=== PATIENT | female | born 1970 | race Caucasian/White ===

== ENCOUNTER 2019-07-11 09:44 | Outpatient (CLI) | payer BC, SELFPAY ==
--- NOTE | 2019-07-11 09:07 | W.PREOPHP ---
Assessment and Plan (1) Peroneal tendon tear: Current visit: No Status: Acute Qualifiers: Encounter type: initial encounter Laterality: right Qualified Code(s): S86.311A - Strain of muscle(s) and tendon(s) of peroneal muscle group at lower leg level, right leg, initial encounter (2) Os peroneum syndrome of right foot: Current visit: No Status: Acute Plan: Educated patient on surgery covering surgical technique, recovery process, benefits and risks including but not limited to risk of infection, blood clot, damage to soft tissue/blood vessels/nerves in detail. After discussion patient gives verbal understanding of risks and elects to proceed with scheduling surgery. Patient had opportunity to have questions answered to their satisfaction. They will contact office if issues arise. Patient will continue to be scheduled for right peroneal tendon debridement with possible repair as well as excision of painful os perineum with Dr. Sims. History of Present Illness Narrative: Ms. Urias is a 48-year-old female who presents to clinic for preoperative visit for scheduled debridement of right peroneal tendons with possible repair. Patient has been experiencing right foot and ankle pain for years. Pain is identified over the lateral aspect of the foot and extends up proximal to the lateral ankle. Pain is intermittent and severely aggravated with activity. States that pain varies day to day; if driving she has severe aggravation the following day as well. In addition pain is elicited with increased physical activities such as running, exercise because it has caused her to have difficulty tolerating any uneven surface. Patient is a trained physical therapist and has treated herself with extreme activity modifications, NSAIDs, manual soft tissue manipulation and eccentric exercises without significant symptomatic relief. Patient denies instability but does report ankle feels weak due to the pain. Patient has previously seen Dr. Sims and reviewed MRI of which as per his note on 05/29/19 states she has tearing of the peroneal longus and brevis tendons; as well as painful os peroneum syndrome with notable changes on the MRI. Reports that her left foot has also been more irritated recently, however her right continues to be the most severe. Due to patient's continued pain despite symptomatic treatment Dr. Sims offered surgery and patient was eager to proceed. Pertinent Surgical Information Reports severe vertigo based on her positioning. She has concerns regarding her positioning during and following surgery. If possible she would prefer to have limited number of transfers and to have the head of the bed slightly raised prior to being awoken from anesthesia. Reports her twin just had surgery and experienced an adverse skin reaction to the adhesive tape. Her sister also had a severe reaction with post-operative vomiting and nausea following general anesthesia. Because of the symptoms following her twin's surgery patient has concerns regarding her on anesthesia plan. Patient was offered opportunity to meet with nurse adolescent medicine specialist to fully discuss anesthesia options. Denies past medical history of: Hypertension, stroke, cardiac issues, angina, asthma, COPD, sleep apnea, renal issues, liver issues, hepatitis, gastrointestinal issues, ulcers, hyperlipidemia, bleeding disorders, seizures, migraines, anxiety, depression, diabetes, autoimmune disorders, thyroid issues Denies prior complications from surgery or anesthesia. Review of Systems Constitutional Denies fever(s), Denies frequent falls and Denies headache(s) Eyes Denies change in vision ENT Reports vertigo, Reports dizziness (denies any recent change), Denies ear discharge, Denies headache(s), Denies epistaxis, Denies nasal discharge and Denies sore throat Cardiovascular Denies chest pain, Denies rapid heart rate, Denies irregular heart rhythm, Denies palpitations, Denies dyspnea, Denies dyspnea on exertion and Denies slow heart rate Respiratory Denies cough, Denies dyspnea, Denies dyspnea on exertion and Denies wheezing Gastrointestinal Denies abdominal pain, Denies melena, Denies hematochezia, Denies constipation, Denies diarrhea, Denies nausea and Denies vomiting Genitourinary Denies hematuria, Denies dysuria and Denies urinary urgency Musculoskeletal Reports as per HPI, Denies numbness and Denies tingling Neurologic Reports vertigo, Reports dizziness (denies any recent change), Denies frequent falls, Denies headache(s), Denies numbness and Denies tingling Psychiatric Denies anxiety and Denies depression Endocrine Denies palpitations Allergic/Immunologic Denies wheezing [facility] Medical History Hot flashes due to menopause (Acute) Os peroneum syndrome of right foot (Acute) Peroneal tendon tear (Acute) 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 Father Alzheimer's disease with early onset Social History Smoking/Tobacco Use Status: Never Alcohol Intake: current Alcohol Intake frequency: holidays/special occasions only Drug use: Never Substance use type: does not use Do you feel safe at home: Yes Do you feel safe in your relationship?: Yes Meds Home Medications Medication Instructions Recorded Confirmed Type loratadine 10 mg PO DAILY PRN 07/11/19 07/11/19 History venlafaxine 75 mg tablet 75 mg PO DAILY 07/11/19 07/11/19 History Allergies Allergy/AdvReac Type Severity Reaction Status Date / Time amoxicillin AdvReac Intermediate Skin Rash Unverified 07/11/19 09:21 environmental Allergy Uncoded 07/11/19 09:21 Exam Const General: cooperative and no acute distress HENMT Head: normal to inspection, normocephalic and atraumatic Ears: external ears normal General nose exam: external nose normal and no nasal discharge Face and sinus: face symmetric Mouth: oral mucosae normal, lip normal, tongue normal and moist mucous membranes Teeth and gingiva: dentition normal Throat: posterior oropharynx normal Eyes Pupils: PERRL EOM: EOM intact bilaterally Neck Neck: trachea midline Carotids: normal carotid upstroke Lymphatic: no lymphadenopathy noted Resp Effort & Inspection: normal respiratory effort and able to speak in complete sentences Auscultation: clear to auscultation bilaterally, no rales, no rhonchi and no wheezes Cardio Heart Sounds: S1 normal, S2 normal and no murmurs Pulses: radial pulses present bilaterally GI Palpation: soft, no hepatosplenomegaly and nontender Auscultation: normal bowel sounds Skin General skin exam: no rashes or lesions noted
== END 2019-07-11 10:04 ==
PROVIDERS: PCP Internal Medicine; Visit Provider Student in an Organized Health Care Education/Training Program
DX: S86.311A Strain of muscle(s) and tendon(s) of peroneal muscle group at lower leg level, right leg, initial encounter (principal); M77.51 Other enthesopathy of right foot and ankle; Z01.818 Encounter for other preprocedural examination
CPT/HCPCS: NC

== ENCOUNTER 2019-07-16 12:51 | Day surgery (SDC) | payer BC, SELFPAY ==
[2019-07-11 09:50] VITALS: BP 111/74; PULSE 68; RESP 16; TEMP 36.7; O2SAT 98
[2019-07-16 13:12] VITALS: BP 108/68; PULSE 65; RESP 16; TEMP 36.4; O2SAT 97
[2019-07-16] MEDS: Lactated Ringers 1,000 ML 80 ML IV (13:42)
[2019-07-16] MEDS: ceFAZolin 2 GM/50 ML BAG IVPB (14:02)
--- NOTE | 2019-07-16 15:05 | PDOC.DSDIS_ITS ---
Discharge Plan Disposition Patient Disposition: HOME Condition: Good Discharge Details Reason For Visit: Right Painful Os Peroneum Attending Provider: Vadim Sims Primary Care Provider: Josephine Velarde Home Meds and New Rx's Prescriptions: New hydrocodone-acetaminophen 5-325 mg tablet 1 tab PO Q4H PRN (Reason: pain) Qty: 14 RF: 0 acetaminophen 500 mg tablet 500 mg PO Q6H PRN PRN (Reason: pain) Qty: 90 RF: 3 ibuprofen 600 mg tablet 600 mg PO TID PRNQty: 90 RF: 3 Continued venlafaxine 75 mg tablet 75 mg PO DAILY RF: 0 loratadine 10 mg Tablet 10 mg PO DAILY PRNRF: 0 Discharge Instructions Additional Instructions: Activity: You are NON WEIGHT BEARING in the splint. You should keep the leg elevated as much as possible. You may wiggle your toes and move your hip and knee. Dressings: You should keep your splint clean and dry. Do NOT get wet or dirty. If you have issues with your splint, please call the office at [phone] or the hospital after hours. Medications: - You should take Tylenol and Ibuprofen around the clock for baseline pain. - You have been prescribed a stronger narcotic, Hydrocodone, for breakthrough pain. Follow-up: 2 weeks Referrals: Vadim Sims MD [ [facility] STAFF PHYSICIAN] - Equipment/Supplies: Splint Activity:: Elevate Remove Dressings/Wound Care:: Do Not Remove Shower/Bathe:: Cover Diet:: As Tolerated Discharge Orders Discharge Orders: Discharge Order (Routine); Ordered 07/16/19 Ordered By: Vadim Sims DS: Diagnosis Discharge Diagnosis (1) Os peroneum syndrome of right foot: Status: Acute
[2019-07-16 15:55] VITALS: BP 121/68; PULSE 60; RESP 18; TEMP 36.6; O2SAT 96
--- NOTE | 2019-07-17 12:21 | ROE_ITS ---
REPORT OF OPERATIVE PROCEDURE DATE OF SURGERY July 16, 2019 PREOPERATIVE DIAGNOSES Right painful os peroneum syndrome, peroneal tendon tear. POSTOPERATIVE DIAGNOSES Right painful os peroneum syndrome, peroneal tendon tear. SURGERY Peroneal tendon debridement with tubularization and repair of the peroneal longus tendon, excision of the os peroneum. SURGEON Vadim Sims M.D. ROMESIELIU Monae PA-C. ESTIMATED BLOOD LOSS 10 cc. COMPLICATIONS None. DISPOSITION The patient was awakened from anesthesia and taken to the PACU in stable condition. INDICATION FOR PROCEDURE Maria Guadalupe is a 48-year old active female who has had persistent lateral right foot pain. She has been eval uated in the past, and has tried a host of conservative treatment options. However, she continued to have symptoms of pain over the lateral aspect of the foot with most weightbearing and physical activi ties. MRI revealed a tear of the peroneal longus tendon, possibly the peroneal brevis tendon, and sig nificant signal within the os peroneum. After failure of conservative treatment options, I did offer her surgical intervention. I reviewed the risks of the procedure, these included but were not limited to bleeding, infection, pain, stiffness, weakness, need for repeat procedures, tendon rupture, damag e to nerves and vessels. Despite these risks, she elected to procedure. PROCEDURE DESCRIPTION Maria Guadalupe was greeted in the preoperative holding area, her identity was confirmed and the correct side wa s identified and marked. The consent was reviewed with the patient and signed. The history and physic al was updated. She was then taken back to the Operating Room and placed in the supine position. All bony prominences were padded. A general anesthetic was administered. A large bump was placed underne ath the right hip to place her leg in maximum internal rotation. The right leg was then prepped with ChloraPrep and draped in a standard fashion. Prophylactic antibiotics in the form of cefazolin were g iven. A timeout was performed for safe surgery. Using 0.25% bupivacaine with epinephrine, I performed local blockade of the intended surgical site, a s well as infiltration of the soft tissue surrounding the sural and superficial peroneal nerves. Once this was performed, an Esmarch tourniquet was then applied. A linear incision was made from the tip of the distal fibula down towards the base of the fifth metatarsal. This was taken sharply through th e skin. Blunt dissection was used to dissect down deep to the peroneal tendon sheath. One small branc h of the sural nerve was identified distally and this was retracted out of the way. Once the peroneal tendon sheath was identified, the soft tissue on top was then retracted to either side to expose the peroneal tendons. The sheath was opened. The intratendinous septum at the level of the peroneal tube rcle was removed with a rongeur. This allowed mobilization of both the peroneal brevis and peroneal l ongus tendons. The sheath was incised distally down to the base of the fifth metatarsal and along the peroneal longus past the os peroneum. At this point, we had the tendons free from the level of the t ip of the fibula down towards the fifth metatarsal. There was some synovitis seen around the peroneal longus and the peroneal brevis. This was resected. The peroneal longus had obvious tearing with some degeneration and fibrillation of the tendon. There was no major tear, but more of a longitudinal spl it, which flattened the tendon. The os peroneum was then identified on the plantar lateral side of th e cuboid. Using a freer and a [place] blade, I excised the os peroneum. I then removed it from the ten don with a rongeur. Once this was removed in whole, it was inspected on multiple positions to ensure that the majority of this was removed. There was also some bony debris in the peroneal brevis tendon and it is unclear if this was part of the os or simply just degenerative changes to the peroneal brev is. This was removed with a rongeur. There was just a small amount of tendon tearing in this area, wh ich was dissected out sharply. The peroneal brevis did not have any clear tearing like the peroneal l ongus did. The degenerative tissue was excised from the peroneal longus. Using a #2-0 FiberWire, I th en tubularized the longitudinal tear of the peroneal longus using a running suture. This was tied and re-constituted the tubular nature of the peroneal longus tendon. The sheath riding underneath the pl remedios aspect of the foot was also debrided with the freer and with danelle irrigation. There was no tea ring seen to extend distal to the os peroneum. Any remnant synovitis was dissected and debrided. The wound was thoroughly irrigated. The deep tissue was closed with a #3-0 Vicryl and the skin was closed with #4-0 Nylon. The Esmarch tourniquet was released and the wound was covered with Xeroform, 4x4s, ABD and Webril. A short leg splint was applied. At the end of the case, all counts were corrected. Chel lee was transferred back to the PACU in stable condition. There were no noted complications. She will be nonweightbearing with a splint and crutches. When she returns to the office, we will phillips sition her into a fracture walker boot.
== END 2019-07-16 16:42 | disposition home or self-care (01) ==
PROVIDERS: PCP Internal Medicine; Visit Provider Student in an Organized Health Care Education/Training Program
PROC: (CPT 28088; principal; 2019-07-16 15:00)
DX: S86.311A Strain of muscle(s) and tendon(s) of peroneal muscle group at lower leg level, right leg, initial encounter (principal); X58.XXXA Exposure to other specified factors, initial encounter; M77.51 Other enthesopathy of right foot and ankle; M65.9 Synovitis and tenosynovitis, unspecified
CPT/HCPCS: 28088; 28226; 28122; E0114; J0131; J0690; J1200; J1885; J2250; J2405

== ENCOUNTER → 2022-07-19 01:16 | Outpatient (CLI) | payer BC, SELFPAY ==
--- NOTE | 2022-07-19 | DI.MAMMO_ITS ---
Exam(s) MAMMO SCREENING EXAM: MAMMO SCREENING CLINICAL HISTORY: SCREENING, Z12.39 TECHNIQUE: Mammograms were interpreted according to the usual protocol including computer analysis w [employer] CAD system, tomosynthesis and C-view imaging. COMPARISON: 2019 [facility] [place] FINDINGS: The breasts are composed of heterogeneously dense fibroglandular densities, Breast Density category C . No suspicious masses or suspicious microcalcifications are seen. No skin thickening or abnormal axillary lymph nodes are seen. There has been no significant change from prior exam. IMPRESSION: BI-RADS Category 1, Negative mammogram. Yearly screening mammography is recommended. Breast Density Category C, heterogeneously Dense. The mammogram demonstrates the patient's breast tissue is dense. Dense breast tissue is very common a nd is not abnormal but dense breast tissue can make it harder to find cancer on a mammogram. Also, de nse breast tissue may increase breast cancer risk. This information about the result of the mammogram report was provided to the patient to raise their awareness. Use this report when you speak with the patient about their risks for breast cancer, which includes their family history. At that time, you may recommend additional screening tests (Ultrasound or MRI) as they might be useful based on their r isk. A negative radiographic report should not delay biopsy if a dominant or clinically suspicious mass is present. Up to ten percent of cancers are not identified on mammography. A negative report may reinforce clinical impression. Adenosis and dense breasts may obscure an underlying neoplasm. False positive reports average 6 to 10%.
== END ==
PROVIDERS: PCP Internal Medicine; Visit Provider Nurse Practitioner Family
DX: Z12.31 Encounter for screening mammogram for malignant neoplasm of breast (principal); R92.8 Other abnormal and inconclusive findings on diagnostic imaging of breast
CPT/HCPCS: 77063; 77067

== ENCOUNTER 2022-09-23 15:41 | Outpatient (REF) | payer BC, SELFPAY | END 2022-09-23 15:42 | disposition home or self-care (01) | LOC: NCHCN 15:41 | PROVIDERS: PCP Internal Medicine; Visit Provider Nurse Practitioner Family | DX: R39.15 Urgency of urination (principal) | CPT/HCPCS: 87086 ==

== ENCOUNTER 2022-11-29 14:51 | Outpatient (CLI) | payer BC, SELFPAY ==
--- NOTE | 2022-11-29 14:30 | DI.RAD_ITS ---
Exam(s) XR KNEE RT 3V AP,LAT,LUCINDA EXAM: XR KNEE RT 3V AP,LAT,LUCINDA CLINICAL HISTORY: RIGHT KNEE PAIN. TECHNIQUE: 2D digital imaging was performed. COMPARISON: No exams were available for comparison FINDINGS: 3 views No evidence of fracture or prominent joint effusion Bone density normal. No degenerative changes. No osseous lesions. IMPRESSION: No significant osseous findings. DATA REPOSITORY: RADIATION DOSE DELIVERED:
== END 2022-11-29 14:52 | disposition home or self-care (01) ==
LOC: DIORS 14:52
PROVIDERS: PCP Nurse Practitioner Family; Referring Provider Nurse Practitioner Family; Visit Provider Student in an Organized Health Care Education/Training Program
DX: M25.561 Pain in right knee (principal)
CPT/HCPCS: 73562

== ENCOUNTER 2022-12-22 00:36 | Outpatient (CLI) | payer BC, SELFPAY ==
--- NOTE | 2022-12-22 06:52 | DI.MRI_ITS ---
Exam(s) MR LOWER JOINT RT WO EXAM: MR LOWER JOINT RT WO CLINICAL HISTORY: R KNEE PAIN,acute medial meniscal tear rt knee, s83.241a TECHNIQUE: Multiplanar multisequence MRI of the knee was performed. COMPARISON: CR XR KNEE RT 3V AP,LAT,LUCINDA from 11/29/2022 FINDINGS: EFFUSION: There is a small knee joint effusion. No Frazier cyst. There is some fluid in the anterior subcutaneous tissue located anteromedial to the lower aspect of patellar tendon. Is no prepatellar s oft tissue swelling MARROW:There is no evidence of fracture, bone contusion, nor osteochondral defects.. There are no si gnificant osseous lesions. PATELLOFEMORAL COMPARTMENT: The quadriceps tendon is intact. The patellar ligament is intact. Are few small surface defects in the retropatellar cartilage but no deep fissures nor osteochondral d efects and there is no abnormal intraosseous signal in the patella.There is no intraosseous signal to suggest recent patellar dislocation. There are no patellar retinacular tears. CRUCIATE LIGAMENTS: The anterior cruciate ligament is intact.The posterior cruciate ligament is intac t. MEDIAL COMPARTMENT/MEDIAL MENISCUS: There is a small oblique tear in the posterior horn of the medial meniscus. Signal contacts the inferior articular surface. Meniscal root is intact. No bucket-hand le configuration. No flipped fragments. The anterior horn is intact.. There is multilevel moderate thinning of the cartilage over the medial femoral condyle small foci of subarticular signal abnormality in the medial condyle at these levels. The most prominent of these i s in the anterior weight-bearing surface and measures 5 millimeters wide by 3 millimeters AP. Subart icular signal at this level. Possible small developing osteochondral defect at this level. There ar e no osteophytes in the medial compartment. MEDIAL COLLATERAL LIGAMENT: There is fluid interposed between the deep and superficial components of the MCL. Sprain signal. No full-thickness tear. There is mild meniscocapsular separation. LATERAL COMPARTMENT/LATERAL MENISCUS: There is no evidence of lateral meniscal tear.There are no manuel dral defects, osteochondral defects, subarticular marrow edema, nor osteophytes evident. ILIOTIBIAL BAND: Intact LATERAL COLLATERAL LIGAMENT COMPLEX: The fibular collateral ligament is intact. The biceps femoris t endon is intact.Popliteus muscle and tendon are intact. IMPRESSION: 1. There is a small tear in the posterior horn of the medial meniscus. There is mild meniscocapsular separation and there is some fluid interposed between the deep and superficial components of the med ial collateral ligament but there is no full-thickness tear of the MCL. There are multifocal small c hondral defects over the medial femoral condyle, the most prominent being 4-5 millimeters size over t he anterior weight-bearing surface, this associated with some mild subarticular edema at this level a nd at risk for developing into osteochondral defect. 2. There are no tears of the lateral meniscus. 3. There are no cruciate or collateral ligament tears. 4. Small joint effusion. No Frazier cyst. No evidence of loose intra-articular bodies. 5. Subcutaneous edema noted anterior to the lower half of the patellar ligament. Mild increased sig nal but no tear of the patellar ligament evident. DATA REPOSITORY:
== END 2022-12-22 00:56 ==
LOC: DI 00:36
PROVIDERS: PCP Nurse Practitioner Family; Visit Provider Student in an Organized Health Care Education/Training Program
DX: S83.241A Other tear of medial meniscus, current injury, right knee, initial encounter (principal); M25.461 Effusion, right knee; X58.XXXA Exposure to other specified factors, initial encounter
CPT/HCPCS: 73721

== ENCOUNTER 2023-01-20 07:22 | Day surgery (SDC) | payer BC, SELFPAY ==
--- NOTE | 2023-01-20 07:27 | ROE_ITS ---
Date of service: 01/20/23 Time of Service: 10:00 Operative Note Operative Note DATE OF PROCEDURE: 01/20/23 PRE-OP DIAGNOSIS: Right knee 1. Medial meniscus tear 2. Synovitis 3. Chondromalacia POST-OP DIAGNOSIS: same PROCEDURE: Right knee 1. Partial medial meniscectomy, CPT #08831 2. Greater than 2 compartment synovectomy, CPT #14475: Patellofemoral, intercondylar, anterior medial, and anterior lateral SURGEON: Howie Aguilar INVENTORY REPRESENTATIVE: None None ANESTHESIA TYPE: Local By Surgeon and Spinal Refer to Anesthesia Record ESTIMATED BLOOD LOSS: 3 PATHOLOGY: none sent TOURNIQUET TIME: 0 Patient was transported to: PACU Patient's condition: stable Indications: Please see complete medical record for details. Findings: Exam under anesthesia: Full range of motion, stable varus, valgus, Daryn, and anterior drawer Arthroscopic findings: Moderate suprapatellar and patellofemoral synovitis. Mild undersurface patellar central chondromalacia. Medial meniscus posterior horn body junction small to moderate inferior leaflet tear that had thickness into the red zone and nearly capsule at its greatest extent. Remainder root and anterior body okay. Small, superficial medial femoral condyle moderate grade chondromalacia with minimal cartilage edge flaps. Intact ACL with mid substance to distal insertion hemorrhagic inflamed synovitis overlying. Moderate anterior medial, anterolateral, and intercondylar synovitis. Intact lateral compartment cartilage and meniscus. Procedure Description: In the operating room, general anesthesia was induced. The patient was positioned supine on the operating room table. All bony prominences were well- padded. Preoperative antibiotics were administered. The knee was prepped and draped in the usual sterile fashion. The correct patient, procedure, and side of the procedure were all verified prior to incision. Exam under anesthesia was performed. 10 cc of 0.25% bupivacaine containing epinephrine was infiltrated about the planned anteromedial and anterolateral knee arthroscopy portals. The portals were established and a complete diagnostic arthroscopy was performed with relevant findings detailed above. The mechanical shaver was used to remove abundant inflamed synovium from the anteromedial, anterolateral, and patellofemoral compartments. It was also carefully resected from the ACL without damaging the underlying ACL. The medial meniscus tear was inspected with the probe. Using a combination of hand instruments including meniscal biters and a power shaver and working through the anteromedial and anterolateral portals the meniscus was debrided of all torn tissue to a stable margin. Care was taken to preserve as much meniscus tissue was possible. The meniscal remnant was probed and found to have a stable margin, stable root, and no other tears A minimal chondroplasty was done using the mechanical shaver a very small edge flaps about the medial femoral condyle cartilage lesion. Under direct arthroscopic visualization an 18-gauge needle was passed into the knee from superolateral into the suprapatellar pouch. The knee was copiously irrigated with arthroscopic fluid until there was a clear effluent before being drained of all fluid. The anteromedial and anterolateral portals were closed in 3-0 Monocryl in a buried interrupted fashion. 20 cc of 0.25% bupivacaine with epinephrine containing 4 mg of morphine was infiltrated into the knee through the previously placed needle. Mastisol, Steri-Strips, and 4 x 4 gauze were applied over the incisions followed by sterile soft roll. The knee was then wrapped gently with an LAMINE comressive bandage. The patient awoke from anesthesia without complication and was transferred to the recovery room in a stable condition.
--- NOTE | 2023-01-20 07:28 | PDOC.DSDIS_ITS ---
Date of service: 01/20/23 Time of Service: 13:00 Discharge Plan Disposition Patient Disposition: Home Discharge Details Attending Provider: Howie Aguilar Primary Care Provider: JOSELITO LEI Home Meds and New Rx's Prescriptions: New aspirin 81 mg tablet,delayed release (DR/EC) 81 mg PO DAILY 14 Days Qty: 14 0RF naproxen 250 mg tablet 250 - 500 mg PO BID PRNQty: 40 0RF Rx Instructions: take with a meal oxycodone 5 mg tablet 5 - 10 mg PO Q4H MDD 30 mg PRN (Reason: moderate to severe pain) Qty: 18 0RF Continued estradiol 1 mg tablet 1 mg PO DAILY Rx Instructions: off 1 week; repeat cycle progesterone micronized 100 mg capsule 100 mg PO QAM Rx Instructions: off 7 days; repeat cycle venlafaxine 75 mg tablet 75 mg PO DAILY loratadine 10 mg Tablet 10 mg PO DAILY PRN acetaminophen 500 mg tablet 500 mg PO Q6H PRN PRN (Reason: pain) Qty: 90 3RF albuterol sulfate 90 mcg/actuation HFA aerosol inhaler 1 - 2 puff INHALATION DIRECTED PRN Patient Comments: INHALE 1 TO 2 PUFFS DIRECTED EVERY 4 TO 6 HOURS PRIOR TO EXERCISE AND WITH ALLERGY EXACERBATION Discontinued ibuprofen 600 mg tablet 600 mg PO TID PRNQty: 90 3RF Discharge Instructions Additional Instructions: Surgery: Right knee arthroscopy with partial medial meniscectomy and synovectomy Activity: Weightbearing as tolerated. Advance range of motion as comfort allows. No knee brace or crutches needed as soon as comfortable. Recommend avoiding sports, pivoting, and squatting for 6-8 weeks. A physical therapy prescription will be provided separately in the office at follow-up if needed. Prescriptions: Aspirin 81 mg take 1 daily to prevent a blood clot for 14 days Naproxen 250 mg take 1-2 every 12 hours with a meal as needed for moderate pain Oxycodone 5 mg take 1-2 every 4-6 hours as needed for severe pain You may use [id number] Tylenol (acetaminophen) as needed for mild pain. These pain medications may be taken all at once or in different combinations as needed. Also, recommend Colace (docusate) as a stool softener as surgery and pain medi cine cause constipation. You may try [id number] diphenhydramine (Benadryl) 25-50 mg nightly as a sleep aid Dressings: Leave dressing in place for 3 days. May then remove and leave open to air or cover incisions with Band-Aids. Leave the sticky Steri-Strips in place until they fall off or remove them after you shower. May shower after 5 days. Follow-up: 10-[address] Aguilar You may take off the leg compression stockings this evening at home. You may also leave them on a few days longer if you have a history of leg swelling or edema. Let us know right away if you develop any redness, drainage, fevers, chest pain, or trouble breathing. Do not drink alcohol or drive for at least 24 hours after anesthesia. Please call the office during business hours with any questions or concerns. Stand Alone Forms: Anesthesia Discharge Inst.[facility] ([facility]) Referrals: Howie Aguilar MD [ [facility] STAFF PHYSICIAN] - 02/01/23 10:15 am Discharge Orders Discharge Orders: Discharge Order (Routine); Ordered 01/20/23 Ordered By: Howie Aguilar DS: Diagnosis Discharge Diagnosis (1) Acute medial meniscus tear of right knee: Status: Acute
[2023-01-20 07:47] VITALS: BP 134/81; PULSE 73; RESP 16; TEMP 36.4; O2SAT 96
[2023-01-20] MEDS: Lactated Ringers 1,000 ML 30 ML IV (08:06)
--- NOTE | 2023-01-20 09:02 | ANES.PREOP_ITS ---
General Info Date of Service Date Performed: 01/20/23 Height: 5 ft 2 in Weight: 77.3 kg Body Mass Index (BMI): 31.1 Surgical Procedure: Operation Date: 01/20/23 09:10 Proposed Procedure Side Surgeon p Knee Arthroscopy w/ any indicated Meniscal, Chondral and Synovial Surgery. Possible Micro Fracture Right Howie Aguilar MD Meds Allergies and Home Medications Allergies Allergy/AdvReac Type Severity Reaction Status Date / Time amoxicillin AdvReac Intermediate Skin Rash Unverified 01/20/23 07:52 environmental Allergy Uncoded 01/20/23 07:52 Home Medication Medication Instructions Recorded loratadine 10 mg tablet 10 mg PO DAILY PRN 07/11/19 venlafaxine 75 mg tablet 75 mg PO DAILY 07/11/19 acetaminophen 500 mg tablet 500 mg PO Q6H PRN PRN pain #90 tabs 07/16/19 estradiol 1 mg tablet 1 mg PO DAILY 11/29/22 progesterone micronized 100 mg 100 mg PO QAM 12/28/22 capsule albuterol sulfate 90 mcg/actuation 1 - 2 puff inhalation DIRECTED 01/19/23 aerosol inhaler PRN Current Visit Medications: Current Medications Generic Name Dose Route Start Last Admin Trade Name Freq PRN Reason Stop Dose Admin Ringer's Solution 1,000 mls @ 30 mls/hr 01/20/23 06:00 01/20/23 08:06 IV 01/20/23 16:00 30 mls/hr INFUSION LINDA Administration Cefazolin Sodium/Dextrose 2 gm in 50 mls @ 100 mls/hr 01/20/23 06:00 Ancef Duplex IVPB 01/20/23 23:59 PREOP LINDA IV Miscellaneous Supplies 1 each 01/20/23 06:00 Iv Access IV 01/20/23 23:59 DIRECTED LINDA Oxycodone HCl 0 mg 01/20/23 07:27 Oxycodone 5 Mg Tab PO Q3H PRN PRN Pain Sodium Chloride 0 ml 01/20/23 06:00 Normal Saline Flush 10 Ml Syr IV 01/20/23 23:59 PRN PRN Sodium Chloride 0 ml 01/20/23 06:00 Normal Saline 10 Ml Vial IJ 01/20/23 23:59 DIRECTED PRN Sterile Water 0 ml 01/20/23 06:00 Water,Injection,Sterile 10 Ml Vial IJ 01/20/23 23:59 DIRECTED PRN PFSH Active Problems Active Problems: Problem Status Onset Code 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 Vertigo R42 Hot flashes due to menopause 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 Acute medial meniscus tear of right knee ~09/2022 S83.241A Chondromalacia, right knee M94.261 Medical History Medical History Exercise-induced asthma Peroneal tendon tear Surgical History Surgical History History of 2 sections Status post de Quervain's release surgery Bilateral Tobacco Smoking/Tobacco Use Status: Never Alcohol Alcohol Intake: current Alcohol intake frequency: holidays/special occasions only Substance Use Substance use: Never Substance use type: does not use Vital Signs and Lab Results Vital Signs Most Recent Vital Signs in EMR: Most Recent Vital Signs Temp Pulse Resp BP Pulse Ox 36.4 C L 73 16 134/81 96 01/20/23 07:47 01/20/23 07:47 01/20/23 07:47 01/20/23 07:47 01/20/23 07:47 Lab Results Blood Type / Crossmatch: No Data to Display Complete Blood Count: 2 No Data to Display Complete Metabolic Panel: No Data to Display Liver Function Panel: No Data to Display Coagulation Panel: No Data to Display Cardiac Panel: No Data to Display Arterial Blood Gas: No Data to Display Venous Blood Gas: No Data to Display Pancreas Panel: No Data to Display Thyroid Panel: No Data to Display Infectious Disease: No Data to Display Blood Cultures: No Data to Display Toxicology Panel: No Data to Display Panel: No Data to Display Anesthesia Assessment and Plan Anesthesia History Personal History: No History of Anesthesia Complications Family History: No Family History of Anesthesia Complications Exercise Tolerance Exercise Tolerance: Metabolic Equivalents>4 Pertinent Negatives Pertinent Negatives: No Symptoms of GERD, No Major Cardiovascular Symptoms or Complaints and No Major Pulmonary Symptoms or Complaints Cardiac & Pulmonary Exam Cardiac Exam: Normal S1/S2 Heart Sounds Pulmonary Exam: Clear Bilateral Breath Sounds Implantable Cardiac Device Does patient have a Pacemaker or an ICD?: No Airway Exam Known Difficult Airway: No Mallampati Class: 2 Mouth Opening: Normal (> 3cm) Thyromental Distance: Greater than 3 cm Neck Range of Motion: Full ROM Neck Circumference: Normal Teeth Condition: Normal Dentition ASA Classification ASA Score: ASA 2 Emergency Case?: No NPO Status NPO Status: NPO Clears >2 hours, Solids >8 hours Status Status: Not Relevant due to Medical History Anesthesia Plan Resuscitation Status: Full Code Anesthesia Technique: Spinal Anesthesia Airway Planned: Natural Airway Monitors Used: Standard Monitors Preoperative Comments:: Requests no sedation and SAB for primary plan, GA backup
[2023-01-20 09:15] VITALS: BMI 31.1
[2023-01-20] MEDS: ceFAZolin 2 GM/50 ML BAG IVPB (09:30)
[2023-01-20] MEDS: Bupivacaine 0.25% Pres-Free W/EPI 30 ML VIAL (10:03)
[2023-01-20] MEDS: EPINEPHrine 30 MG/30 ML VIAL (10:03)
[2023-01-20] MEDS: MORPHine 4 MG/ML SYR (10:03)
[2023-01-20 10:29] VITALS: BP 99/64; PULSE 60; RESP 16; TEMP 36.2; O2SAT 97
[2023-01-20 11:05] VITALS: BP 114/69; PULSE 65; RESP 18; TEMP 36.3; O2SAT 96
--- NOTE | 2023-01-20 12:35 | W.ANESPOSTOP ---
Postoperative Evaluation Date, Time and Location Date Performed: 01/20/23 Time Performed: 10:30 Patient Location: Day Surgery Unit Vital Signs Most Recent Imported Vital Signs: Most Recent Vital Signs Temp Pulse Resp BP Pulse Ox 36.3 C L 65 18 114/69 96 01/20/23 11:05 01/20/23 11:05 01/20/23 11:05 01/20/23 11:05 01/20/23 11:05 Pain Score Most Recent Pain Score: Most Recent Pain Score Pain Level 0 01/20/23 11:05 Assessment Mental Status: Awake (Alert & Oriented to Patient Baseline) Airway and Respiratory Function: Patent airway with normal (patient baseline) respiratory exam Cardiovascular Function: Hemodynamically Stable Hydration Status: Adequately Hydrated Nausea & Vomiting: No Nausea or Vomiting Pain: Pt. Denies Any Pain Peripheral Nerve Block: Regional nerve block not resolved at time of post operative discharge
== END 2023-01-20 11:55 | disposition home or self-care (01) ==
PROVIDERS: PCP Nurse Practitioner Family; Visit Provider Student in an Organized Health Care Education/Training Program
PROC: (CPT 29870; principal; 2023-01-20 09:00)
DX: S83.241A Other tear of medial meniscus, current injury, right knee, initial encounter (principal); M65.861 Other synovitis and tenosynovitis, right lower leg; X58.XXXA Exposure to other specified factors, initial encounter
CPT/HCPCS: 29876; 29881; 81025; J0690; J2270; J2405

== ENCOUNTER 2023-04-03 11:24 | Outpatient (REF) | payer BC, SELFPAY | END 2023-04-03 11:25 | disposition home or self-care (01) | LOC: LBN 11:24 | PROVIDERS: PCP Nurse Practitioner Family; Visit Provider Nurse Practitioner Family | DX: R39.15 Urgency of urination (principal) | CPT/HCPCS: 87077; 87086; 87186 ==

== ENCOUNTER 2023-07-31 17:49 | Outpatient (REF) | payer BC, SELFPAY | END 2023-07-31 17:50 | disposition home or self-care (01) | LOC: LBN 17:49 | PROVIDERS: PCP Nurse Practitioner Family; Visit Provider Nurse Practitioner Family | DX: N30.01 Acute cystitis with hematuria (principal) | CPT/HCPCS: 87077; 87086; 87186 ==

== ENCOUNTER → 2023-08-03 02:11 | Outpatient (CLI) | payer BC, SELFPAY ==
--- NOTE | 2023-08-03 10:30 | DI.MRI_ITS ---
Exam(s) MR LOWER JOINT RT WO EXAM: MR LOWER JOINT RT WO CLINICAL HISTORY: R KNEE PAIN,ACUTE MEDIAL MENISCUS TEAR,CHONDROMALALCIA,M94.261,S83.241A TECHNIQUE: Multiplanar multisequence MRI of the knee was performed. COMPARISON: CR XR KNEE RT 3V AP,LAT,LUCINDA from 11/29/2022 MR MR LOWER JOINT RT WO from 12/22/2022 FINDINGS: EFFUSION: There is a moderate size joint effusion. No Frazier cyst seen MARROW:There is no evidence of fracture, bone contusion, nor osteochondral defects.. There are no si gnificant osseous lesions. PATELLOFEMORAL COMPARTMENT: The quadriceps tendon is intact. The patellar ligament is intact. Again noted are few small surface defects in the retropatellar cartilage but no deep fissures nor ost eochondral defects. There is again no abnormal intraosseous signal in the patella.There is no intrao sseous signal to suggest recent patellar dislocation. There are no patellar retinacular tears. CRUCIATE LIGAMENTS: The anterior cruciate ligament is intact.The posterior cruciate ligament is intac t. MEDIAL COMPARTMENT/MEDIAL MENISCUS: The previously described small tear in the posterior horn of the medial meniscus has significantly progressed. There is now a vertical oblique tear in the outer 3rd with additional mild oblique component, significantly more evident than on the prior study. There is no bucket-handle configuration and there are no flipped meniscal fragments. The meniscal root is in tact. The anterior horn of the medial meniscus appears intact. Mild increased signal at the junctio n of the outer aspect of the posterior horn of the medial meniscus and MCL noted consistent with [place] ent ofsprain signal and meniscocapsular separation.. The previously described foci of subarticular edema in the medial femoral condyle have somewhat impro rudi but not completely resolved. There is mild cartilage loss over the main weight-bearing surface o f the medial femoral condyle. There is no formed osteochondral defect. No osteophytes. MEDIAL COLLATERAL LIGAMENT: As above LATERAL COMPARTMENT/LATERAL MENISCUS: There is no evidence of lateral meniscal tear.There are no manuel dral defects, osteochondral defects, subarticular marrow edema, nor osteophytes evident. ILIOTIBIAL BAND: Intact LATERAL COLLATERAL LIGAMENT COMPLEX: The fibular collateral ligament is intact. The biceps femoris t endon is intact.Popliteus muscle and tendon are intact. IMPRESSION: 1. Appeared to the prior MRI scan of 12/22/2022 there has been progression in the size of the tear of the posterior horn of the medial meniscus as described above. There are no flipped meniscal fragmen ts. No bucket-handle configuration. Mild cartilage changes but less subchondral edema in the medial femoral condyle when compared to the prior study. There is no formed osteochondral defect. There i s some sprain signal in the inner aspect of the MCL 2. There are no tears of the lateral meniscus and no cruciate ligament tears. 3. Joint effusion has increased in size. There is no Frazier cyst. No loose intra-articular bodies ev ident. DATA REPOSITORY:
== END ==
PROVIDERS: PCP Nurse Practitioner Family; Visit Provider Student in an Organized Health Care Education/Training Program
DX: M94.261 Chondromalacia, right knee (principal); S83.241A Other tear of medial meniscus, current injury, right knee, initial encounter
CPT/HCPCS: 73721

== ENCOUNTER 2024-05-27 16:29 | Outpatient (REF) | payer BC, SELFPAY ==
--- NOTE | 2024-05-27 16:10 | CER_PTH ---
PATIENT: Maria Guadalupe Lei LOC: N U#:[id number] AGE/SX: 53/F ROOM: RE05/27/[address]: Maria Guadalupe Hawkins MD : 1970 BED: DIS: 05/27/2024 SPEC #: [id number] RECD: 05/27/24 17:35 STATUS: RAFAEL REQ #: [id number] TIANA: 05/27/24 16:[address]: Maria Guadalupe Hawkins DEPT: Surgical Specimen RECD BY: Rowena Sparks ENTERED: 05/27/24 17:35 SP TYPE: CER OT DR: JOSELITO LEI, MADELAINE Tissues: 1 - CERVICAL BIOPSY Procedures: GROSS AND MICRO LEVEL 4 Comments: [id number]
== END 2024-05-27 16:30 | disposition home or self-care (01) ==
LOC: LBN 16:29
PROVIDERS: PCP Nurse Practitioner Family; Visit Provider Obstetrics & Gynecology
DX: N84.1 Polyp of cervix uteri (principal)
CPT/HCPCS: 88305

== ENCOUNTER 2024-06-07 10:21 | Outpatient (REF) | payer BC, SELFPAY ==
--- NOTE | 2024-06-07 09:50 | ENDOMET_PTH ---
PATIENT: Maria Guadalupe Lei LOC: [facility] U#:[id number] AGE/SX: 53/F ROOM: RE06/07/[address]: Maria Guadalupe Hawkins MD : 1970 BED: DIS: 06/07/2024 SPEC #: [id number] RECD: 06/07/24 12:33 STATUS: RAFAEL REQ #: [id number] TIANA: 06/07/24 09:[address]: Maria Guadalupe Hawkins DEPT: Surgical Specimen RECD BY: Rowena Sparks ENTERED: 06/07/24 12:34 SP TYPE: Endomet OTHR DR: JOSELITO LEI, MADELAINE Tissues: 1 - ENDOMETRIUM BX/BRADY Procedures: GROSS AND MICRO LEVEL 4 Comments: [id number]
== END 2024-06-07 10:22 | disposition home or self-care (01) ==
LOC: LBN 10:21
PROVIDERS: PCP Nurse Practitioner Family; Visit Provider Obstetrics & Gynecology
DX: N95.0 Postmenopausal bleeding (principal)
CPT/HCPCS: 88305